=== PATIENT | male | born 1995 | race Caucasian/White ===

== ENCOUNTER 2018-12-30 17:36 | Emergency (ER) | payer OTHER ==
--- NOTE | 2018-12-30 17:45 | ED Physician Documentation ---
History of Present Illness - Stated complaint Stated Complaint: POSS ALLERGIC REACTION - Chief complaint Chief Complaint: Resp - History obtained from History obtained from: Patient - Additonal information Additional information: Patient is a 23-year-old male presenting with sore throat and fever over the past 1 to 2 days. Patient reports strep throat in the past and symptoms are similar to such today. Patient reports difficulty and pain with swallowing, as well as difficulty breathing. Patient denies productive cough. Patient denies nasal congestion or rhinorrhea, ear pain, headache or other abdominal complaints including nausea, vomiting, pain, urinary or stool changes.Patient is taken aspirin and Benadryl at home. No other improving or worsening factors noted. Review of Systems Constitutional: reports: Fever Ears: denies: Ear pain Nose: denies: Rhinorrhea / runny nose, Congestion Throat: reports: Sore throat Respiratory: reports: Dyspnea. denies: Cough GI: denies: Abdominal Pain, Nausea, Vomiting, Diarrhea : denies: Dysuria PD PAST MEDICAL HISTORY - Past Medical History Past Medical History: No - Past Surgical History Past Surgical History: Yes General: Other (Hernia repair) - Present Medications Home Medications: Ambulatory Orders Medication Instructions Recorded Confirmed Penicillin V Potassium 500 mg PO BID 10 Days tablet 12/30/18 - Allergies Allergies/Adverse Reactions: Allergies Allergy/AdvReac Type Severity Reaction Status Date / Time iodine Allergy Anaphylaxis Verified 12/30/18 17:43 PD ED PE NORMAL - Vitals Vital signs reviewed: Yes - General General: Alert and oriented X 3, No acute distress, Well developed/nourished - HEENT HEENT: Atraumatic, Moist mucous membranes, Dentition benign. No: Pharynx benign (Market swelling, erythema, exudate of tonsils bilaterally. No uvula deviation, uvulitis, or evidence of peritonsillar abscess. No trismus.) - Neck Neck: Supple, no meningeal sign - Cardiac Cardiac: RRR, No murmur - Respiratory Respiratory: No respiratory distress, Clear bilaterally - Abdomen Abdomen: Normal bowel sounds, Soft, Non tender, Non distended - Derm Derm: Normal color, Warm and dry, No rash - Extremities Extremities: No deformity, No tenderness to palpate, No edema - Neuro Neuro: Alert and oriented X 3, No motor deficit, No sensory deficit - Psych Psych: Normal mood, Normal affect Results - Vitals Vitals: Vital Signs - 24 hr 12/30/18 12/30/18 17:39 18:52 Temperature 39.3 C H 38.1 C H Heart Rate 103 H 92 Respiratory 18 20 Rate Blood Pressure 137/75 H 134/65 H O2 Saturation 99 99 Oxygen O2 Source Room air PD MEDICAL DECISION MAKING - ED course Complexity details: re-evaluated patient, considered differential, d/w patient, d/w family ED course: Patient presenting with fever and sore throat and on exam has symptoms indicative of tonsillitis, likely strep. Do not feel patient requires strep testing at this time as plan to base treatment on clinical findings. Do not have high suspicion for other infectious processes such as otitis media or externa, mastoiditis, sinusitis, retropharyngeal abscess, pneumonia. Do not have concerns for intra-abdominal pathology at this time. Patient is able to swallow and tolerate oral intake without issue. Patient received ibuprofen and Tylenol and appropriately defervesced in the ED. Patient also received first dose of antibiotic. At this time, feel that he is safe to discharge home and discussed use of antibiotics, other supportive cares, return precautions, appropriate follow-up. Patient and father voiced understanding and are comfortable with discharge plan. Departure - Departure Disposition: 01 Home, Self Care Clinical Impression: Tonsillitis Condition: Good Instructions: ED Tonsillitis Follow-Up: your,doctor [Other] - Within 3 Days Prescriptions: Penicillin V Potassium 500 mg PO BID 10 Days tablet Comments: Take antibiotics as prescribed starting tomorrow as you received your first dose in the ED tonight. Recommend consistent use of ibuprofen/Tylenol to help control fever, inflammation, and pain. May also try Listerine or salt water gargles. Recommend good oral hygiene and replacement of toothbrush in the near future. Follow-up with primary care physician in next 2 to 3 days and return to ED sooner if experience worsening symptoms or have other concerns.
[2018-12-30] MEDS ORDERED: PENICILLIN VK 250 MG TABLET PO STA (17:51)
[2018-12-30] MEDS ORDERED: ACETAMINOPHEN 325 MG TABLET PO STA (17:51)
[2018-12-30] MEDS ORDERED: IBUPROFEN 600 MG TABLET PO STA (17:51)
[2018-12-30 18:52] VITALS: BP 134/65
== END 2018-12-30 19:05 | disposition home or self-care (01) ==
LOC: ED 17:36
DX: J03.90 Acute tonsillitis, unspecified (principal)
CPT/HCPCS: 99282; 99284; A9270